=== PATIENT | female | born 1950 | race Caucasian/White ===

== ENCOUNTER 2017-08-04 14:26 | Observation (INO) | payer MEDICARE, BC ==
[2017-08-04] VITALS (7 sets, daily range): BP systolic 123–159; BP diastolic 60–102; PULSE 45–113; RESP 16–22; TEMP 98.4–98.7; O2SAT 96–99
[~2017-08-04] VITALS: Ht 170.2 cm; Wt 100.0 kg
[2017-08-04 15:23] LABS: AUTOMATED NEUTROPHIL # 4.8 TH/MM3 (1.8-7.7); BASOPHIL % 0.6 % (0.0-2.0); EOSINOPHIL # 0.3 TH/MM3 (0-0.4); EOSINOPHIL % 3.5 % (0.0-4.0); HEMATOCRIT 42.3 % (35.0-46.0); HEMO FLAGS DIFF FINAL; LYMPH % 22.6 % (9.0-44.0); LYMPHOCYTE # 1.7 TH/MM3 (1.0-4.8); MEAN CELL VOLUME 86.6 FL (80.0-100.0); MEAN CORPUSCULAR HEMOGLOBIN 29.3 PG (27.0-34.0); MEAN CORPUSCULAR HGB CONC 33.8 % (32.0-36.0); MONO % 9.6 % (0.0-8.0); NEUT % 63.7 % (16.0-70.0); PLATELET COUNT 172 TH/MM3 (150-450); RED BLOOD COUNT 4.89 MIL/MM3 (4.00-5.30); RED CELL DISTRIBUTION WIDTH 13.2 % (11.6-17.2); WHITE BLOOD COUNT 7.6 TH/MM3 (4.0-11.0)
--- NOTE | 2017-08-04 15:28 | RADRPT ---
EXAM DATE/TIME: 08/04/2017 15:01 [place] COMPARISON: No previous studies available for comparison. INDICATIONS : Chest discomfort and dizzy. MEDICAL HISTORY : None. SURGICAL HISTORY : None. ENCOUNTER: Initial ACUITY: 1 day PAIN SCORE: 3/10 LOCATION: Bilateral chest FINDINGS: A single view of the chest demonstrates the lungs to be symmetrically aerated without evidence of mas s, infiltrate or effusion. The cardiomediastinal contours are unremarkable. Osseous structures are intact. CONCLUSION: No acute disease. Rito Weaver MD on August 04, 2017 at 15:26 Board Certified Radiologist. This report was verified electronically.
[2017-08-04 15:38] LABS: APTT (PATIENT) 25.5 SEC (24.3-30.1); INTERNATIONAL NORMALIZED RATIO 0.9 RATIO; PROTHROMBIN TIME - PATIENT 9.4 SEC (9.8-11.6)
[2017-08-04 16:20] LABS: ANION GAP 9 MEQ/L (5-15); BLOOD UREA NITROGEN 25 MG/DL (7-18); CHLORIDE 103 MEQ/L (98-107); GLOMERULAR FILTRATION RATE 59 ML/MIN (>89); POTASSIUM 4.4 MEQ/L (3.5-5.1); SODIUM (NA) 138 MEQ/L (136-145)
[2017-08-04 16:27] LABS: CREATINE KINASE 80 U/L (26-192)
[2017-08-04] MEDS ORDERED: TRAM50TA PO (16:45)
[2017-08-04] MEDS ORDERED: BISO5TAB5 PO (16:45)
[2017-08-04] MEDS ORDERED: LIFI1DRO EACH EYE (16:45)
[2017-08-04] MEDS ORDERED: LEVO150T7 PO (16:45)
[2017-08-04] MEDS ORDERED: MELO15TA20 PO (16:45)
--- NOTE | 2017-08-04 17:12 | PD ---
HPI Chief Complaint: Cardiac Complaint Time Seen by Provider: 14:45 Travel History International Travel<30 days: No Contact w/Intl Traveler<30days: No Traveled to known affect area: No History of Present Illness HPI 67 yo F c/o complains of palpitations and chest pressure. It started about an hour and half prior to ER arrival as she was getting into her car to do some [place] shopping. She is able to walk into shops and felt the symptoms worsen with exertion. Mild dyspnea is reported. No cough or fever. No history of diabetes hypertension hyperlipidemia. Patient does not smoke. She was instructed family history of coronary artery disease. She denies a personal history of coronary artery disease. She has no history of arrhythmia of which she is aware. Certainly moderate. Onset sudden. PFSH Past Medical History Arthritis: Yes Heart Rhythm Problems: Yes Cardiovascular Problems: Yes (A-FIB) Diminished Hearing: No Influenza Vaccination: No ?: Not Past Surgical History Section: Yes (2) Joint Replacement: Yes (BILATERAL KNEE) Other Surgery: Yes (RIGHT TOE BONE SPURS) Social History Alcohol Use: No Tobacco Use: No Substance Use: No Allergies-Medications (Allergen,Severity, Reaction): Coded Allergies: No Known Allergies (Unverified , 08/04/17) Reported Meds & Prescriptions Reported Meds & Active Scripts Active Reported Xiidra Opth Drops (Lifitegrast Opth Drops) 5% Drops 1 Drop EACH EYE BID Tramadol (Tramadol HCl) 50 Mg Tab 50 Mg PO Q4H PRN Meloxicam 15 Mg Tab 15 Mg PO DAILY Levothyroxine (Levothyroxine Sodium) 150 Mcg Tab 150 Mcg PO DAILY Bisoprolol (Bisoprolol Fumarate) 5 Mg Tab 5 Mg PO DAILY Review of Systems Except as stated in HPI: all other systems reviewed are Neg General / Constitutional: No: Fever Cardiovascular: Positive: Chest Pain or Discomfort, Palpitations Physical Exam Narrative GENERAL: 67-year-old female pleasant well-nourished well-developed no acute distress SKIN: Warm and dry. HEAD: Atraumatic. Normocephalic. EYES: Pupils equal and round. No scleral icterus. No injection or drainage. ENT: No nasal bleeding or discharge. Mucous membranes pink and moist. NECK: Trachea midline. No JVD. CARDIOVASCULAR: Tachycardia. Rate somewhat irregular concerning for a defibrillation RESPIRATORY: No accessory muscle use. Clear to auscultation. Breath sounds equal bilaterally. GASTROINTESTINAL: Abdomen soft, non-tender, nondistended. Hepatic and splenic margins not palpable. MUSCULOSKELETAL: no sign of DVT. Moving all extremities normally. NEUROLOGICAL: Awake and alert. No obvious cranial nerve deficits. Motor grossly within normal limits. Five out of 5 muscle strength in the arms and legs. Normal speech. PSYCHIATRIC: Appropriate mood and affect; insight and judgment normal. Data Data Last Documented VS Vital Signs Date Time Temp Pulse Resp B/P (MAP) Pulse Ox O2 Delivery O2 Flow Rate FiO2 08/04/17 16:36 50 22 159/72 (101) 99 Room Air 08/04/17 14:28 98.4 Vital signs reviewed Orders Orders Electrocardiogram (08/04/17 14:50) Basic Metabolic Panel (Bmp) (08/04/17 14:50) Ckmb (Isoenzyme) Profile (08/04/17 14:50) Complete Blood Count With Diff (08/04/17 14:50) Magnesium (Mg) (08/04/17 14:50) Prothrombin Time / Inr (Pt) (08/04/17 14:50) Act Partial Throm Time (Ptt) (08/04/17 14:50) Troponin I (08/04/17 14:50) Chest, Single Ap (08/04/17 14:50) Ecg Monitoring (08/04/17 14:50) Bilateral Bp Monitoring (08/04/17 14:50) Iv Access Insert/Monitor (08/04/17 14:50) Oximetry (08/04/17 14:50) Oxygen Administration (08/04/17 14:50) Admit Order (Ed Use Only) (08/04/17 16:52) Labs Laboratory Tests Test 08/04/17 15:10 White Blood Count 7.6 TH/MM3 Red Blood Count 4.89 MIL/MM3 Hemoglobin 14.3 GM/DL Hematocrit 42.3 % Mean Corpuscular Volume 86.6 FL Mean Corpuscular Hemoglobin 29.3 PG Mean Corpuscular Hemoglobin Concent 33.8 % Red Cell Distribution Width 13.2 % Platelet Count 172 TH/MM3 Mean Platelet Volume 9.3 FL Neutrophils (%) (Auto) 63.7 % Lymphocytes (%) (Auto) 22.6 % Monocytes (%) (Auto) 9.6 % Eosinophils (%) (Auto) 3.5 % Basophils (%) (Auto) 0.6 % Neutrophils # (Auto) 4.8 TH/MM3 Lymphocytes # (Auto) 1.7 TH/MM3 Monocytes # (Auto) 0.7 TH/MM3 Eosinophils # (Auto) 0.3 TH/MM3 Basophils # (Auto) 0.0 TH/MM3 CBC Comment DIFF FINAL Differential Comment Prothrombin Time 9.4 SEC Prothromb Time International Ratio 0.9 RATIO Activated Partial Thromboplast Time 25.5 SEC Blood Urea Nitrogen 25 MG/DL Creatinine 0.95 MG/DL Random Glucose 113 MG/DL Calcium Level 8.9 MG/DL Magnesium Level 2.0 MG/DL Sodium Level 138 MEQ/L Potassium Level 4.4 MEQ/L Chloride Level 103 MEQ/L Carbon Dioxide Level 26.0 MEQ/L Anion Gap 9 MEQ/L Estimat Glomerular Filtration Rate 59 ML/MIN Total Creatine Kinase 80 U/L Troponin I LESS THAN 0.02 NG/ML MDM Medical Decision Making Medical Screen Exam Complete: Yes Emergency Medical Condition: Yes Medical Record Reviewed: Yes Differential Diagnosis NSTEMI, unstable angina, coronary vasospasm, PE, PTX, aortic dissection, pericarditis, myocarditis, endocarditis, PNA, esophageal disease, aneurysm, musculoskeletal etiologies, anxiety, cocaine/sympathomimetic abuse Narrative Course CBC & BMP Diagram 08/04/17 15:10 Calcium Level 8.9, Magnesium Level 2.0 Troponin less than 0.02 EKG shows sinus rhythm at a rate of 60. Left axis deviation and there are various areas of ST change of some concern potentially consistent with ischemic injury pattern however did not see signs of STEMI. Chest x-ray is unremarkable The time of reassessment about 30 minutes prior to admission the patient reports that her heart rate spontaneously decreased from about 132 approximately 60. Palpitations stopped at that time. The monitor change was observed by the patient's . Case d/w Dr Stuart Diagnosis Primary Impression: Atrial fibrillation Qualified Codes: I48.0 - Paroxysmal atrial fibrillation Additional Impression: ST segment changes on electrocardiography Admitting Information Admitting Physician Requests: Observation Girma Verma MD Aug 04, 2017 17:12
[2017-08-04] MEDS ORDERED: MORPHINE SULFATE 4 MG/ML INJ IV PUSH PRN ×2 (18:15)
[2017-08-04] MEDS ORDERED: LACTULOSE SYRUP 20 GM/30 ML CUP PO PRN (18:15)
[2017-08-04] MEDS ORDERED: SENNOSIDES 8.6 MG TAB PO PRN (18:15)
[2017-08-04] MEDS ORDERED: oxyCODONE/ACETAMINOPHEN 10 MG/325 MG TAB PO PRN (18:15)
[2017-08-04] MEDS ORDERED: SODIUM CHLORIDE 0.9% FLUSH 10 ML FLUSH IV FLUSH PRN ×2 (18:15)
[2017-08-04] MEDS ORDERED: NALOXONE HCL 0.4 MG/ML AMP IV PUSH PRN (18:15)
[2017-08-04] MEDS ORDERED: ONDANSETRON HCL 4 MG/2 ML VIAL IVP PRN (18:15)
[2017-08-04] MEDS ORDERED: MAGNESIUM HYDROXIDE SUSP 30 ML CUP PO PRN (18:15)
[2017-08-04] MEDS ORDERED: ACETAMINOPHEN 325 MG TAB PO PRN ×2 (18:15)
[2017-08-04] MEDS ORDERED: ACETAMINOPHEN 500 MG CPLT PO PRN (18:15)
[2017-08-04] MEDS ORDERED: ALPRAZolam 0.25 MG TAB PO PRN (18:15)
[2017-08-04] MEDS ORDERED: traMADol HCL 50 MG TAB PO PRN (18:15)
[2017-08-04] MEDS ORDERED: BISACODYL 10 MG SUPP RECTAL PRN (18:15)
[2017-08-04] MEDS ORDERED: NITROGLYCERIN 0.4 MG SL 25 TABS/BTL SL PRN (18:15)
[2017-08-04] MEDS ORDERED: PROCHLORPERAZINE 25 MG SUPP RECTAL PRN (18:15)
--- NOTE | 2017-08-04 18:25 | HHI.HP ---
HPI Service [facility] Hospitalists Primary Care Physician Unknown Admission Diagnosis paroxysmal afib; ekg changes Diagnoses: Chief Complaint: Cardiac complaint with palpitations and chest pressure Travel History International Travel<30 Days: No Contact w/Intl Traveler <30 Da: No Traveled to Known Affected Are: No History of Present Illness Patient is a 67-year-old female. Who presented to the emergency room here at [facility] complaining of palpitations and chest pressure. Patient states it started about an hour and a half prior to presentation to the ER. She states she was getting into her car to drive to do some [place] shopping When it happened. He had some mild dyspnea. She states she's able to walk and shop some help the symptoms worsening with exertion. She had some palpitations. Denies any cough or fever. Denies any history of diabetes hypertension per se or hyperlipidemia. 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 Has a possible family history of coronary artery disease She does have some history of arrhythmia. 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 had only been on oral medications for this never had a pacemaker or AICD placed Review of Systems Constitutional: COMPLAINS OF: Fatigue, DENIES: Diaphoretic episodes, Fever, Weight gain, Weight loss, Chills, Dizziness, Change in appetite Endocrine: DENIES: Abnorml menstrual pattern, Heat/cold intolerance, Polydipsia Eyes: DENIES: Blurred vision, Diplopia, Eye inflammation, Eye pain Ears, nose, mouth, throat: DENIES: Tinnitus, Hearing loss, Vertigo, Nasal discharge Respiratory: DENIES: Apneas, Cough, Snoring, Wheezing, Hemoptysis Cardiovascular: COMPLAINS OF: Chest pain, Palpitations, DENIES: Syncope, Dyspnea on Exertion, PND, Lower Extremity Edema Gastrointestinal: DENIES: Abdominal pain, Black stools, Bloody stools, Constipation Genitourinary: DENIES: Abnormal vaginal bleeding, Dysmenorrhea, Dyspareunia Musculoskeletal: DENIES: Joint pain, Muscle aches, Stiffness, Joint Swelling, Back pain Integumentary: DENIES: Abnormal pigmentation, Pruritus, Rash, Nail changes, Breast masses Hematologic/lymphatic: DENIES: Bruising, Lymphadenopathy Immunologic/allergic: DENIES: Eczema, Urticaria Neurologic: DENIES: Abnormal gait, Headache, Localized weakness, Paresthesias, Seizures, Speech Problems Psychiatric: DENIES: Anxiety, Confusion, Mood changes, Depression, Hallucinations, Delusions Except as stated in HPI: all other systems reviewed are Neg Past Family Social History Past Medical History Osteoarthritis Sounds like a history of a wandering atrial pacemaker Possible atrial fibrillation History Of alcohol abuse Past Surgical History Strip bilateral knee surgeries. Total knees bilaterally. Right toe bone spur removal and sections 2 Reported Medications Reported Meds & Active Scripts Active Reported Xiidra Opth Drops (Lifitegrast Opth Drops) 5% Drops 1 Drop EACH EYE BID Tramadol (Tramadol HCl) 50 Mg Tab 50 Mg PO Q4H PRN Meloxicam 15 Mg Tab 15 Mg PO DAILY Levothyroxine (Levothyroxine Sodium) 150 Mcg Tab 150 Mcg PO DAILY Bisoprolol (Bisoprolol Fumarate) 5 Mg Tab 5 Mg PO DAILY Allergies: Coded Allergies: No Known Allergies (Unverified , 08/04/17) Family History Cardiac history in the family Social History Recovering alcoholic and has been sober for about 22 years Denies any tobacco alcohol or illicits currently Physical Exam Vital Signs Vital Signs Date Time Temp Pulse Resp B/P (MAP) Pulse Ox O2 Delivery O2 Flow Rate FiO2 08/04/17 16:36 50 22 159/72 (101) 99 Room Air 08/04/17 15:15 103 99 Room Air 08/04/17 15:14 97 Room Air 08/04/17 14:28 98.4 113 16 127/96 (106) 98 Physical Exam GENERAL: This is a well-nourished, well-developed patient, in no apparent distress. SKIN: No rashes, ecchymoses or lesions. Cool and dry. HEAD: Atraumatic. Normocephalic. No temporal or scalp tenderness. EYES: Pupils equal round and reactive. Extraocular motions intact. No scleral icterus. No injection or drainage. ENT: Nose without bleeding, purulent drainage or septal hematoma. Throat without erythema, tonsillar hypertrophy or exudate. Uvula midline. Airway patent. NECK: Trachea midline. No JVD or lymphadenopathy. Supple, nontender, no meningeal signs. CARDIOVASCULAR: IRRegular rate and rhythm without murmurs, gallops, or rubs. Having bursts of tachycardia and bradycardia was in bradycardia when I examined her RESPIRATORY: Clear to auscultation. Breath sounds equal bilaterally. No wheezes , rales, or rhonchi. GASTROINTESTINAL: Abdomen soft, non-tender, nondistended. No hepato-splenomegaly , or palpable masses. No guarding. MUSCULOSKELETAL: Extremities without clubbing, cyanosis, or edema. No joint tenderness, effusion, or edema noted. No calf tenderness. Negative Homans sign bilaterally. NEUROLOGICAL: Awake and alert. Cranial nerves II through XII intact. Motor and sensory grossly within normal limits. Five out of 5 muscle strength in all muscle groups. Normal speech. Insight and judgment is good Mood and behavior is appropriate Laboratory Laboratory Tests Test 08/04/17 15:10 White Blood Count 7.6 Red Blood Count 4.89 Hemoglobin 14.3 Hematocrit 42.3 Mean Corpuscular Volume 86.6 Mean Corpuscular Hemoglobin 29.3 Mean Corpuscular Hemoglobin Concent 33.8 Red Cell Distribution Width 13.2 Platelet Count 172 Mean Platelet Volume 9.3 Neutrophils (%) (Auto) 63.7 Lymphocytes (%) (Auto) 22.6 Monocytes (%) (Auto) 9.6 Eosinophils (%) (Auto) 3.5 Basophils (%) (Auto) 0.6 Neutrophils # (Auto) 4.8 Lymphocytes # (Auto) 1.7 Monocytes # (Auto) 0.7 Eosinophils # (Auto) 0.3 Basophils # (Auto) 0.0 CBC Comment DIFF FINAL Differential Comment Prothrombin Time 9.4 Prothromb Time International Ratio 0.9 Activated Partial Thromboplast Time 25.5 Blood Urea Nitrogen 25 Creatinine 0.95 Random Glucose 113 Calcium Level 8.9 Magnesium Level 2.0 Sodium Level 138 Potassium Level 4.4 Chloride Level 103 Carbon Dioxide Level 26.0 Anion Gap 9 Estimat Glomerular Filtration Rate 59 Total Creatine Kinase 80 Troponin I LESS THAN 0.02 Result Diagram: 08/04/17 1510 08/04/17 1510 Imaging Last Impressions Chest X-Ray 08/04/17 1450 Signed Impressions: Service Date/Time: Friday, August 04, 2017 15:01 - CONCLUSION: No acute disease. MD Lan Galeano VTE Risk Assessment Lan VTE Risk Assessment: Mod/High Risk (score >= 2) Caprini Risk Assessment Model Point Value = 1 Point Value = 2 Point Value = 3 Point Value = 5 Age 41-60 Minor surgery BMI > 25 kg/m2 Swollen legs Varicose veins or History of unexplained or recurrent spontaneous Oral contraceptives or hormone replacement Sepsis (< 1 month) Serious lung disease, including pneumonia (< 1 month) Abnormal pulmonary function Acute myocardial infarction Congestive heart failure (< 1 month) History of inflammatory bowel disease Medical patient at bed rest Age 61-74 Arthroscopic surgery Major open surgery (> 45 min) Laparoscopic surgery (> 45 min) Malignancy Confined to bed (> 72 hours) Immobilizing plaster cast Central venous access Age >= 75 History of VTE Family history of VTE Factor V Leiden Prothrombin [id number] Lupus anticoagulant Anticardiolipin antibodies Elevated serum homocysteine Heparin-induced thrombocytopenia Other congenital or acquired thrombophilia Stroke (< 1 month) Elective arthroplasty Hip, pelvis, or leg fracture Acute spinal cord injury (< 1 month) Prophylaxis Regimen Total Risk Factor Score Risk Level Prophylaxis Regimen 0-1 Low Early ambulation 2 Moderate Order ONE of the following: *Sequential Compression Device (SCD) *Heparin 5000 units SQ BID 3-4 Higher Order ONE of the following medications: *Heparin 5000 units SQ TID *Enoxaparin/Lovenox 40 mg SQ daily (WT < 150 kg, CrCl > 30 mL/min) *Enoxaparin/Lovenox 30 mg SQ daily (WT < 150 kg, CrCl > 10-29 mL/min) *Enoxaparin/Lovenox 30 mg SQ BID (WT < 150 kg, CrCl > 30 mL/min) AND/OR *Sequential Compression Device (SCD) 5 or more Highest Order ONE of the following medications: *Heparin 5000 units SQ TID (Preferred with Epidurals) *Enoxaparin/Lovenox 40 mg SQ daily (WT < 150 kg, CrCl > 30 mL/min) *Enoxaparin/Lovenox 30 mg SQ daily (WT < 150 kg, CrCl > 10-29 mL/min) *Enoxaparin/Lovenox 30 mg SQ BID (WT < 150 kg, CrCl > 30 mL/min) AND *Sequential Compression Device (SCD) Assessment and Plan Assessment and Plan Chest pain/palpitations possible wandering atrial pacemaker versus tachybradycardia syndrome consult cardiology. Trend troponins. Echocardiogram Hold her bisoprolol Osteoarthritis pain medications available History of joint replacements bilateral knees Pain control as needed Continue on DVT prophylaxis with Lovenox GI prophylaxis Code Status Full code Discussed Condition With Emergency room physician and patient and RN Levi Stuart DO Aug 04, 2017 18:25
[2017-08-04] MEDS ORDERED: TEMAZEPAM 15 MG CAP PO PRN (21:00)
[2017-08-04] MEDS ORDERED: LIFITEGRAST EACH EYE SCH (21:00)
[2017-08-04] MEDS: FAMOTIDINE 20 MG TAB PO SCH (21:08)
[2017-08-04] MEDS: DOCUSATE SODIUM 50 MG/SENNA 8.6 MG TAB PO SCH (21:08)
[2017-08-04] MEDS: ENOXAPARIN SODIUM 100 MG/ML SYRINGE SQ SCH (21:08)
[2017-08-04] MEDS: SODIUM CHLORIDE 0.9% FLUSH 10 ML FLUSH IV FLUSH SCH ×2 (21:09)
[2017-08-04 21:24] LABS: CREATINE KINASE 73 U/L (26-192)
[2017-08-05 01:36] LABS: HDL CHOLESTEROL 59.5 MG/DL (40.0-60.0); LDL CHOLESTEROL 116 MG/DL (0-99)
[2017-08-05 01:40] LABS: CREATINE KINASE 57 U/L (26-192)
[2017-08-05] MEDS ORDERED: LEVOTHYROXINE SODIUM 150 MCG TAB PO SCH (06:00)
[2017-08-05 07:00] VITALS: PULSE 44
[2017-08-05 08:38] VITALS: BP 137/65; PULSE 45; RESP 16; TEMP 97.7; O2SAT 97
[2017-08-05] MEDS: DOCUSATE SODIUM 50 MG/SENNA 8.6 MG TAB PO SCH (09:00)
[2017-08-05] MEDS: SODIUM CHLORIDE 0.9% FLUSH 10 ML FLUSH IV FLUSH SCH ×2 (09:00→09:02)
[2017-08-05] MEDS ORDERED: PANTOPRAZOLE SOD 40 MG DELAYED RELEASE TAB PO SCH (09:00)
[2017-08-05] MEDS ORDERED: MELOXICAM 15 MG TAB PO SCH (09:00)
[2017-08-05] MEDS ORDERED: ASPIRIN 81 MG CHEW TAB PO SCH (09:00)
[2017-08-05] MEDS: ENOXAPARIN SODIUM 100 MG/ML SYRINGE SQ SCH (09:01)
[2017-08-05] MEDS: FAMOTIDINE 20 MG TAB PO SCH (09:02)
--- NOTE | 2017-08-05 10:06 | PD.CONS ---
HPI Consult Requested By Primary Care Physician Unknown History of Present Illness 67-year-old female with a past medical history of palpitations. The patient has a history of palpitations for the past 10 years, has episodes of heart racing sensation about once a month. Previously with extensive workup in [place] including 72 hour Holter and EP study with no definitive diagnosis. The patient has been on bisoprolol for the past 6 months with no lightheadedness or dizziness. Yesterday she states the palpitations lasted longer than they have in the past, approximately 50 minutes. She states she was previously told by her insurance writer up [place] that when the episodes come back, go to the ED to try to capture the rhythm. She states her heart rate was 145, and then was back to normal by the time they did the EKG. She did have some problems catching her breath with a fast heart rate yesterday. No further issues overnight and has remained asymptomatic. She denies any chest pain. (Jim Boogie) Review of Systems Negative except as stated in the history of present illness (Jim Boogie) Past Family Social History Allergies: Coded Allergies: No Known Allergies (Unverified , 08/04/17) Past Medical History Palpitations, OA, hypothyroid Past Surgical History Total knees bilaterally. Right toe bone spur removal and sections 2 Reported Medications Reported Meds & Active Scripts Active Reported Xiidra Opth Drops (Lifitegrast Opth Drops) 5% Drops 1 Drop EACH EYE BID Meloxicam 15 Mg Tab 15 Mg PO DAILY Levothyroxine (Levothyroxine Sodium) 150 Mcg Tab 150 Mcg PO DAILY Bisoprolol (Bisoprolol Fumarate) 5 Mg Tab 5 Mg PO DAILY Active Ordered Medications Current Medications Medications (Trade) Dose Ordered Sig/Nita Route Start Time Stop Time Status Last Admin (Synthroid) 150 mcg DAILY@0600 PO 08/05/17 06:00 08/05/17 05:10 (Mobic) 15 mg DAILY PO 08/05/17 09:00 08/05/17 09:02 (Ultram) 50 mg Q4H PRN PO 08/04/17 18:15 08/04/17 22:42 Patient Own Medication PT OWN MED: XIIDRA(LIFITEGRAST)5%... BID EACH EYE 08/04/17 21:00 Future Hold (NS Flush) 2 ml BID IV FLUSH 08/04/17 21:00 08/05/17 09:02 (NS Flush) 2 ml UNSCH PRN IV FLUSH 08/04/17 18:15 (Aspirin Chew) 162 mg DAILY PO 08/05/17 09:00 08/05/17 09:02 (Nitrostat Sl) 0.4 mg Q5M PRN SL 08/04/17 18:15 (Tylenol) 500 mg Q4H PRN PO 08/04/17 18:15 (Protonix) 40 mg DAILY PO 08/05/17 09:00 08/05/17 09:02 (Pepcid) 20 mg BID PO 08/04/17 21:00 08/05/17 09:02 (Restoril) 15 mg HS PRN PO 08/04/17 21:00 (Xanax) 0.25 mg TID PRN PO 08/04/17 18:15 (Lovenox Inj) 50 mg Q12H SQ 08/04/17 20:00 08/05/17 09:01 (NS Flush) 2 ml UNSCH PRN IV FLUSH 08/04/17 18:15 (NS Flush) 2 ml BID IV FLUSH 08/04/17 21:00 08/04/17 21:09 (Tylenol) 650 mg Q4H PRN PO 08/04/17 18:15 (Zofran Inj) 4 mg Q6H PRN IVP 08/04/17 18:15 (Compazine Supp) 25 mg Q12H PRN RECTAL 08/04/17 18:15 (Tylenol) 650 mg Q6H PRN PO 08/04/17 18:15 (Percocet 10-325 Mg) 1 tab Q6H PRN PO 08/04/17 18:15 (Morphine Inj) 2 mg Q3H PRN IV PUSH 08/04/17 18:15 (Morphine Inj) 4 mg Q3H PRN IV PUSH 08/04/17 18:15 (Narcan Inj) 0.4 mg UNSCH PRN IV PUSH 08/04/17 18:15 (Debbie-Colace) 1 tab BID PO 08/04/17 21:00 08/04/17 21:08 (Milk Of Magnesia Liq) 30 ml Q12H PRN PO 08/04/17 18:15 (Senokot) 17.2 mg Q12H PRN PO 08/04/17 18:15 (Dulcolax Supp) 10 mg DAILY PRN RECTAL 08/04/17 18:15 (Lactulose Liq) 30 ml DAILY PRN PO 08/04/17 18:15 Family History Cardiac history in the family Social History Recovering alcoholic and has been sober for about 22 years Denies any tobacco alcohol or illicits currently (Jim Boogie) Physical Exam Vital Signs Vital Signs Date Time Temp Pulse Resp B/P (MAP) Pulse Ox O2 Delivery O2 Flow Rate FiO2 08/05/17 08:38 97.7 45 16 137/65 (89) 97 08/04/17 23:34 98.7 51 18 123/60 (81) 96 08/04/17 23:22 18 08/04/17 20:36 98.7 45 18 136/68 (90) 96 08/04/17 19:44 08/04/17 19:23 98 21 08/04/17 19:06 49 18 138/102 (114) 98 Room Air 08/04/17 18:31 49 19 132/60 (84) 98 Room Air 08/04/17 16:36 50 22 159/72 (101) 99 Room Air 08/04/17 15:15 103 99 Room Air 08/04/17 15:14 97 Room Air 08/04/17 14:28 98.4 113 16 127/96 (106) 98 Physical Exam GENERAL: Well-developed well-nourished. In no acute distress. NECK: No carotid bruits. No JVD. CARDIOVASCULAR: Regular rate and rhythm. No murmur appreciated. RESPIRATORY: No accessory muscle use. Clear to auscultation. Breath sounds equal bilaterally. MUSCULOSKELETAL: No clubbing or cyanosis. No edema. NEUROLOGICAL: Awake and alert. Normal speech. Laboratory Laboratory Tests Test 08/04/17 15:10 08/04/17 20:00 08/05/17 01:00 White Blood Count 7.6 Red Blood Count 4.89 Hemoglobin 14.3 Hematocrit 42.3 Mean Corpuscular Volume 86.6 Mean Corpuscular Hemoglobin 29.3 Mean Corpuscular Hemoglobin Concent 33.8 Red Cell Distribution Width 13.2 Platelet Count 172 Mean Platelet Volume 9.3 Neutrophils (%) (Auto) 63.7 Lymphocytes (%) (Auto) 22.6 Monocytes (%) (Auto) 9.6 Eosinophils (%) (Auto) 3.5 Basophils (%) (Auto) 0.6 Neutrophils # (Auto) 4.8 Lymphocytes # (Auto) 1.7 Monocytes # (Auto) 0.7 Eosinophils # (Auto) 0.3 Basophils # (Auto) 0.0 CBC Comment DIFF FINAL Differential Comment Prothrombin Time 9.4 Prothromb Time International Ratio 0.9 Activated Partial Thromboplast Time 25.5 Blood Urea Nitrogen 25 Creatinine 0.95 Random Glucose 113 Calcium Level 8.9 Magnesium Level 2.0 2.0 Sodium Level 138 Potassium Level 4.4 Chloride Level 103 Carbon Dioxide Level 26.0 Anion Gap 9 Estimat Glomerular Filtration Rate 59 Total Creatine Kinase 80 73 57 Troponin I LESS THAN 0.02 LESS THAN 0.02 LESS THAN 0.02 Triglycerides Level 82 Cholesterol Level 192 LDL Cholesterol 116 HDL Cholesterol 59.5 Cholesterol/HDL Ratio 3.22 (Jim Boogie) Result Diagram: 08/04/17 1510 08/04/17 1510 Imaging Last Impressions Chest X-Ray 08/04/17 1450 Signed Impressions: Service Date/Time: Friday, August 04, 2017 15:01 - CONCLUSION: No acute disease. Rito Weaver MD (Jim Boogie) Assessment and Plan Assessment and Plan 67-year-old female with a past medical history of palpitations who presented for her racing and shortness of breath. Palpitations: Chronic recurrent problem. Troponins normal. EKGs and telemetry with NSR. Patient is cleared for discharge and outpatient follow-up with cardiology. (Jim Boogie) Assessment and Plan DC home FU cardio (Rock Uribe MD) Jim Boogie Aug 05, 2017 10:06 Rock Uribe MD Aug 05, 2017 11:10
--- NOTE | 2017-08-05 13:13 | EKG ---
Date Performed: 08/04/2017 Time Performed: 15:35:20 PTAGE: 67 years EKG: Sinus rhythm Left axis deviation Poor R-wave progression, cannot exclude anteroseptal myocardial infarction of un determined age, although this may be a normal variant NO PREVIOUS TRACING DOCTOR: Saroj Hand Interpretating Date/Time 08/05/2017 13:11:08
--- NOTE | 2017-08-05 13:13 | EKG ---
Date Performed: 08/04/2017 Time Performed: 23:28:43 PTAGE: 67 years EKG: Poor tracing with marked baseline wandering Borderline left axis deviation Sinus bradycardi a Poor initial anterior forces PREVIOUS TRACING : 08/04/2017 23.28 Since previous tracing, axis is slightly leftward. CT interval slightly shorter, and R-wave progression has slightly improved in leads V3-V6. DOCTOR: Saroj aHnd Interpretating Date/Time 08/05/2017 13:13:28
--- NOTE | 2017-08-05 13:13 | EKG ---
Date Performed: 08/04/2017 Time Performed: 21:12:49 PTAGE: 67 years EKG: Sinus bradycardia with borderline first degree AV block Left axis deviation Poor R-wave pro gression across the precordium, which could be a normal variant vs. previous anteroseptal myocardial infarction of undetermined age PREVIOUS TRACING : 08/04/2017 15.35 Since previous tracing, no significant change. DOCTOR: Saroj Hand Interpretating Date/Time 08/05/2017 13:12:18
[2017-08-05 13:53] VITALS: BP 130/76; PULSE 50; RESP 18; O2SAT 97
--- NOTE | 2017-08-05 14:31 | HHI.DS ---
Discharge Summary Admission Date Aug 04, 2017 at 16:54 Discharge Date: Aug 05, 2017 Admitting Diagnosis paroxysmal afib; ekg changes (1) Atrial fibrillation ICD Code: I48.91 - Unspecified atrial fibrillation Status: Acute (2) ST segment changes on electrocardiography ICD Code: R94.31 - Abnormal electrocardiogram [ECG] [EKG] Status: Acute Procedures None Brief History - From Admission Patient is a 67-year-old female. Who presented to the emergency room here at [facility] complaining of palpitations and chest pressure. Patient states it started about an hour and a half prior to presentation to the ER. She states she was getting into her car to drive to do some [place] shopping When it happened. He had some mild dyspnea. She states she's able to walk and shop some help the symptoms worsening with exertion. She had some palpitations. Denies any cough or fever. Denies any history of diabetes hypertension per se or hyperlipidemia. 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 Has a possible family history of coronary artery disease She does have some history of arrhythmia. 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 Voss is a 67 year old female. She came into the hospital secondary to palpitations. She has a history of recurrent tachycardic arrhythmia which has not been specified but is likely paroxysmal atrial fibrillation. By the time EKG was obtained she had resolution and was in normal sinus rhythm. She has had no recurrence over the last 24 hours and has been cleared by cardiology for discharge home on previous treatments. Medically stable for discharge home today with outpatient follow-up with cardiology primary care physician. Pt Condition on Discharge: Stable Discharge Disposition: Discharge Home Discharge Time: <= 30 minutes Discharge Instructions DIET: Follow Instructions for: Heart Healthy Diet Activities you can perform: Regular-No Restrictions Follow up Referrals: Cardiology - 2 Weeks PCP Follow-up - 2 Weeks Continued Medications: Bisoprolol (Bisoprolol) 5 Mg Tab 5 MG PO DAILY for Blood Pressure Management, #30 TAB 0 Refills Levothyroxine (Levothyroxine) 150 Mcg Tab 150 MCG PO DAILY for Thyroid, #30 TAB 0 Refills Lifitegrast Opth Drops (Xiidra Opth Drops) 5% Drops 1 DROP EACH EYE BID for Dry Eye, #1 BOTTLE 0 Refills Meloxicam (Meloxicam) 15 Mg Tab 15 MG PO DAILY for Arthritis Pain, #30 TAB 0 Refills Girma Jung MD Aug 05, 2017 14:31
--- NOTE | 2017-08-05 14:39 | ECHRPT ---
Indication: chest pain CONCLUSIONS The left ventricular systolic function is normal with an estimated ejection fraction in the range of 60-65%. Doppler parameters are consistent with a pseudonormal left ventricular filling pattern with concomin ant abnormal relaxation and increased filling pressure (grade 2 diastolic dysfunction). Trace mitral valve regurgitation. There is mild tricuspid valve regurgitation. BP: 123 / 60 HR: 81 Rhythm: MEASUREMENTS (Male / Female) Normal Values Technical Quality: 2D ECHO LV Diastolic Diameter PLAX 4.1 cm 4.2 - 5.9 / 3.9 - 5.3 cm LV Systolic Diameter PLAX 2.4 cm IVS Diastolic Thickness 1.3 cm 0.6 - 1.0 / 0.6 - 0.9 cm LVPW Diastolic Thickness 1.3 cm 0.6 - 1.0 / 0.6 - 0.9 cm LV Relative Wall Thickness 0.6 RV Internal Dim ED PLAX 2.7 cm LVOT Diameter 1.6 cm LA Systolic Diameter LX 4.0 cm 3.0 - 4.0 / 2.7 - 3.8 cm M-MODE Aortic Root Diameter MM 2.5 cm LA Systolic Diameter MM 4.0 cm LA Ao Ratio MM 1.6 AV Cusp Separation MM 1.8 cm DOPPLER AV Peak Velocity 174.0 cm/s AV Peak Gradient 12.1 mmHg LVOT Peak Velocity 119.0 cm/s LVOT Peak Gradient 5.7 mmHg AV Area Cont Eq pk 1.4 cm MV Area PHT 3.0 cm Mitral E Point Velocity 71.6 cm/s Mitral A Point Velocity 59.7 cm/s Mitral E to A Ratio 1.2 LV E' Lateral Velocity 9.0 cm/s Mitral E to LV E' Lateral Ratio 8.0 LV E' Septal Velocity 8.3 cm/s Mitral E to LV E' Septal Ratio 8.6 TR Peak Velocity 271.0 cm/s TR Peak Gradient 29.4 mmHg Right Atrial Pressure 10.0 mmHg Pulmonary Artery Systolic Pressu 39.4 mmHg Right Ventricular Systolic Press 39.4 mmHg PV Peak Velocity 144.0 cm/s PV Peak Gradient 8.3 mmHg FINDINGS LEFT VENTRICLE The left ventricular systolic function is normal with an estimated ejection fraction in the range of 60-65%. Normal left ventricular size. Mild concentric left ventricular hypertrophy. No regional wall motion abnormalities are present. Doppler parameters are consistent with a pseudonormal left ventricular filling pattern with concomin ant abnormal relaxation and increased filling pressure (grade 2 diastolic dysfunction). RIGHT VENTRICLE Normal right ventricular size and systolic function. LEFT ATRIUM The left atrial size is mildly dilated. RIGHT ATRIUM The right atrial size is normal. ATRIAL SEPTUM Normal atrial septal thickness. AORTA The aortic root and proximal ascending aorta are normal in size on limited imaging. MITRAL VALVE Structurally normal mitral valve. Trace mitral valve regurgitation. No mitral valve stenosis. AORTIC VALVE Trileaflet aortic valve. No aortic valve stenosis or regurgitation. TRICUSPID VALVE Structurally normal tricuspid valve. There is mild tricuspid valve regurgitation. The estimated pulmonary arterial pressure is 39.4 mmHg. PULMONARY VALVE No pulmonary valve regurgitation or stenosis. VESSELS The inferior vena cava is normal in size. PERICARDIUM No pericardial effusion. Ethan Verma DO (Electronically Signed) Final Date:05 August 2017 14:37
== END 2017-08-05 14:54 | disposition home or self-care (01) ==
LOC: NEPE 14:26 → NEDA 16:54 → NEPGCP 19:55
PROVIDERS: ADMIT Hospitalist; ATTEND Hospitalist
DX: I48.0 Paroxysmal atrial fibrillation (principal); R07.89 Other chest pain; R00.2 Palpitations; R00.0 Tachycardia, unspecified; I44.0 Atrioventricular block, first degree; R00.1 Bradycardia, unspecified; R94.31 Abnormal electrocardiogram [ECG] [EKG]; E03.9 Hypothyroidism, unspecified; F10.21 Alcohol dependence, in remission; M19.90 Unspecified osteoarthritis, unspecified site; Z79.899 Other long term (current) drug therapy; Z82.49 Family history of ischemic heart disease and other diseases of the circulatory system
CPT/HCPCS: 71010; 80048; 80061; 82550; 83735; 84484; 85025; 85610; 85730; 93005; 93306; 96372; 99285; G0378; J1650